=== PATIENT | female | born 1955 | race Caucasian/White ===

== ENCOUNTER 2020-08-28 16:29 | Emergency (ER) | payer MEDICARE, BC ==
--- NOTE | 2020-08-28 17:01 | XRAY Report ---
PROCEDURE: Wrist 3 View LT INDICATIONS: injury TECHNIQUE: 3 views of the wrist were acquired. COMPARISON: None FINDINGS: Bones: No fractures or dislocations. No suspicious bony lesions. Soft tissues: No suspicious soft tissue calcifications. IMPRESSION: No fracture. No acute osseous lesion. If there are persistent symptoms or continued clinical concern for pathology, then repeat plain film radiographs (7-10 days) or advanced imaging (CT, MR, bone scan) should be considered for further evaluation. Reviewed by: Lucina Hope MD, PhD on 08/28/2020 4:59 PM PDT Approved by: Lucina Hope MD, PhD on 08/28/2020 4:59 PM PDT Station ID: [id number]
--- NOTE | 2020-08-28 18:03 | ED Physician Documentation ---
PD HPI UPPER EXT INJURY - Stated complaint Stated Complaint: GLF/LT ARM PX - Chief complaint Chief Complaint: Trauma Ext - History obtained from History obtained from: Patient - History of Present Illness Location: Left, Wrist Type of injury: Fall. No: Laceration Timing - onset: Today Timing - details: Abrupt onset, Still present Improved by: Rest Worsened by: Moving Associated symptoms: Swelling. 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 - Present Medications Home Medications: Ambulatory Orders Medication Instructions Recorded Confirmed No Known Home Medications 08/28/20 08/28/20 - Allergies Allergies/Adverse Reactions: Allergies Allergy/AdvReac Type Severity Reaction Status Date / Time amoxicillin Allergy Rash Verified 08/28/20 16:41 nickel Allergy Rash Verified 08/28/20 16:42 - Social History Does the pt smoke?: No Smoking Status: Never smoker Does the pt drink ETOH?: Yes ETOH Use: Wine, Beer Does the pt have substance abuse?: Yes Substance Use and Type: CBD oil / Products - Immunizations Immunizations are current?: Yes PD ED PE NORMAL - Vitals Vital signs reviewed: Yes - General General: Alert and oriented X 3, Well developed/nourished - Derm Derm: Normal color, Warm and dry - Extremities Extremities: Other (left wrist with tenderness dorsally with swelling. Not tender at snuffbox. Normal sensation infingers. ) - Neuro Neuro: Alert and oriented X 3, No motor deficit, No sensory deficit Results - Vitals Vitals: Vital Signs - 24 hr 08/28/20 08/28/20 16:43 18:17 Temperature 36.7 C 36.0 C L Heart Rate 57 L 53 L Respiratory 16 16 Rate Blood Pressure 136/78 H 131/75 H O2 Saturation 99 100 Oxygen O2 Source Room air - Rads (name of study) left wrist Radiology: Prelim report reviewed PD MEDICAL DECISION MAKING - ED course Complexity details: reviewed results, considered differential, d/w patient Departure - Departure Disposition: 01 Home, Self Care Clinical Impression: Accidental fall Qualifiers: Encounter type: initial encounter Qualified Code(s): W19.XXXA - Unspecified fall, initial encounter Left wrist sprain Qualifiers: Encounter type: initial encounter Qualified Code(s): S63.502A - Unspecified sprain of left wrist, initial encounter Condition: Stable Record reviewed to determine appropriate education?: Yes Instructions: ED Sprain Wrist Comments: Your x-ray does not show any fractures. Presume injury of the ligaments and muscles (sprain). This can feel still take several days for the swelling to go down in a week or so force the pain to improve a lot. It may be 2 or 3 weeks for full complete healing. Use the wrist brace fairly regularly for the first several days to week and then as needed. You can remove it for showering and such. To begin with you may feel better with it during rest and sleep but it is not necessary to keep it on all the time. Have it on when up and around and using the wrist. Use some anti-inflammatory such as ibuprofen 2 or 3 times a day for the next several days to week. Add Tylenol if needed for pain. Follow-up with your primary care if not well improved over the next week and fully improved over 2 to 3 weeks. Discharge Date/Time: 08/28/20 18:22
[2020-08-28] MEDS: IBUPROFEN 600 MG TABLET PO STA (18:13)
[2020-08-28 18:19] VITALS: BP 131/75
== END 2020-08-28 18:22 | disposition home or self-care (01) ==
LOC: ED 16:29
DX: S63.502A Unspecified sprain of left wrist, initial encounter (principal); W19.XXXA Unspecified fall, initial encounter; Y93.H2 Activity, gardening and landscaping; Y92.007 Garden or yard of unspecified non-institutional (private) residence as the place of occurrence of the external cause
CPT/HCPCS: 99283

== ENCOUNTER 2023-01-14 08:00 | Outpatient (CLI) | payer MEDICARE, BC | END 2023-01-14 08:01 | disposition home or self-care (01) | LOC: LAB.S 08:00 | PROVIDERS: ATTEND Nurse Practitioner | DX: R55 Syncope and collapse (principal) | CPT/HCPCS: 82962 ==

== ENCOUNTER 2023-01-14 08:42 | Outpatient (CLI) | payer MEDICARE, BC | END 2023-01-14 08:43 | disposition critical access hospital (66) | LOC: EMS 08:42 | DX: R55 Syncope and collapse (principal); S01.81XA Laceration without foreign body of other part of head, initial encounter; W18.39XA Other fall on same level, initial encounter; Y92.000 Kitchen of unspecified non-institutional (private) residence as the place of occurrence of the external cause; R09.89 Other specified symptoms and signs involving the circulatory and respiratory systems | CPT/HCPCS: A0425; A0429 ==

== ENCOUNTER 2023-01-14 09:17 | Emergency (ER) | payer MEDICARE, BC ==
[2023-01-14 09:55] LABS: BASOPHILS % (AUTO) 0.4 %; EOSINOPHILS % (AUTO) 0.1 %; HGB - HEMOGLOBIN 12.8 g/dL (12.0-16.0); LYMPHOCYTES # (AUTO) 0.4 10^3/uL (1.5-3.5); MEAN CORPUSCULAR HEMOGLOBIN 31.4 pg (27.0-31.0); MEAN CORPUSCULAR HGB CONC 32.8 g/dL (32.0-36.0); MEAN CORPUSCULAR VOLUME 95.8 fL (81.0-99.0); MEAN PLATELET VOLUME 9.1 fL (7.9-10.8); MONOCYTES # (AUTO) 0.6 10^3/uL (0.0-1.0); MONOCYTES % (AUTO) 6.9 %; NEUTROPHILS % (AUTO) 87.5 %; PLT - PLATELET COUNT 229 10^3/uL (130-450); RED BLOOD COUNT 4.07 10^6/uL (4.20-5.40)
[2023-01-14 10:11] LABS: ALBUMIN 4.2 g/dL (3.2-5.5); ALBUMIN/GLOBULIN RATIO 1.6 (1.0-2.2); BILIRUBIN,TOTAL 0.7 mg/dL (0.2-1.0); CALCIUM 9.1 mg/dL (8.5-10.3); CREATININE 0.9 mg/dL (0.6-1.3); POTASSIUM 4.6 mmol/L (3.5-4.5); TOTAL PROTEIN 6.8 g/dL (6.4-8.9)
[2023-01-14 10:17] LABS: TROPONIN I HIGH SENSITIVITY 2.4 ng/L (2.3-14.8)
--- NOTE | 2023-01-14 10:23 | ED Physician Documentation ---
PD HPI SYNCOPE - Stated complaint Stated Complaint: SYNCOPAL EPISODE - Chief complaint Chief Complaint: Neuro - History obtained from History obtained from: Patient, EMS (they found her BP to be low iniitally, improved with some fluids enroute.) - History of Present Illness Witnessed: Witnessed Timing - onset: How many hours ago (1-2) Duration: Seconds Preceding symptoms: Nausea / vomiting, Light headed, Generalized weakness. No: Headache, Chest pain, Abdominal pain Similar symptoms before: Has not had sx before Recently seen: Clinic (seen in afternoon with routine visit and had COVID and FLu vaccines. [place] abruptly bad during night.) Review of Systems Constitutional: reports: Fever (overnight), Chills, Myalgias Nose: denies: Rhinorrhea / runny nose, Congestion Throat: denies: Sore throat Cardiac: denies: Chest pain / pressure, Palpitations, Pedal edema, Calf pain Respiratory: denies: Cough GI: reports: Nausea. denies: Abdominal Pain, Diarrhea Skin: reports: Rash (longer duration of rough, sometimes scaly rounded rash right inguinal, improves with triamcinonlone but not resolves, then back worse agin.) Neurologic: reports: Generalized weakness, Syncope, Head injury. 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 - Present Medications Home Medications: Ambulatory Orders Medication Instructions Recorded Confirmed Clotrimazole/Betamethasone Crm 1 applic TOP BID #45 gm 01/14/23 [Lotrisone Cream] - Allergies Allergies/Adverse Reactions: Allergies Allergy/AdvReac Type Severity Reaction Status Date / Time amoxicillin Allergy Rash Verified 08/28/20 16:41 nickel Allergy Rash Verified 08/28/20 16:42 - Social History Does the pt smoke?: No Smoking Status: Never smoker Does the pt drink ETOH?: Yes Does the pt have substance abuse?: No - Immunizations Immunizations are current?: Yes PD ED PE NORMAL - Vitals Vital signs reviewed: Yes - General General: Alert and oriented X 3, No acute distress, Well developed/nourished - HEENT HEENT: PERRL, EOMI, Other (occipiput with horizontal laceration 7 cm down to fatty tissue. No FB and only minimal bleeding. ) - Neck Neck: Supple, no meningeal sign, No bony TTP, No adenopathy - Cardiac Cardiac: RRR, No murmur - Respiratory Respiratory: Clear bilaterally - Abdomen Abdomen: Soft, Non tender - Derm Derm: Normal color, Warm and dry, Other (rounded patch of rash right lower abd/inguinal area, with scaly type edge and rough center. ) Results - Vitals Vitals: Vital Signs - 24 hr 01/14/23 01/14/23 01/14/23 09:30 11:02 13:28 Temperature 36.1 C L 36.7 C Heart Rate 68 75 67 Respiratory 14 17 18 Rate Blood Pressure 102/55 L 107/62 109/66 O2 Saturation 100 97 96 Oxygen O2 Source Room air - EKG (time done) 10:37 EKG releavant findings:: EKG personally interpreted by author of this note. Relevant findings are: Rate: Rate (enter#) (63) Rhythm: NSR [place]: Normal Intervals: Normal MD QRS: Normal Ischemia: Normal ST segments. No: ST elevation c/w ischemia, ST depression - Labs Labs: Laboratory Tests 01/14/23 01/14/23 09:50 09:50 WBC 8.0 RBC 4.07 L Hgb 12.8 Hct 39.0 MCV 95.8 MCH 31.4 H MCHC 32.8 RDW 12.0 Plt Count 229 MPV 9.1 Neut # (Auto) 7.0 H Lymph # (Auto) 0.4 L [place] # (Auto) 0.6 Eos # (Auto) 0.0 Baso # (Auto) 0.0 Absolute Nucleated RBC 0.00 Nucleated RBC % 0.0 Sodium 137 Potassium 4.6 H Chloride 104 Carbon Dioxide 26 Anion Gap 7.0 BUN 15 Creatinine 0.9 Estimated GFR (MDRD) 62 L Glucose 115 H Calcium 9.1 Total Bilirubin 0.7 AST 18 ALT 11 Alkaline Phosphatase 50 Troponin I High Sens 2.4 Total Protein 6.8 Albumin 4.2 Globulin 2.6 Albumin/Globulin Ratio 1.6 Lipase 25 - Rads (name of study) head CT Relevant Findings:: Prelim report reviewed (no ICH nor acute findings. ), EMP independent interpretation of test Procedures - Laceration (location) occipital scalp Length in cm: 7 Wound type: Linear, Into subcut fat, Clean Neurovascular status: Sensory intact Anesthesia: Lidocaine 1% with epi Wound preparation: Irrigated copiously NS, Wound explored, To the base Deep layer closure: Vicryl, size #-0 - enter number (5), # sutures - enter number (7) Skin layer closure: Catrachita, Interrupted, Other (17 catrachita) PD Medical Decision Making - ED course Complexity details: reviewed results, re-evaluated patient (she is alert and oriented, no distress. vitals are good. ), considered differential (felt chills, fevers, weak last night abruptly after vaccines in office earlier in afternoon, with COVID and influenza vaccines. Got up this morning and felt lightheaded, weak and fell, striking head on furniture with lac. Awoke minute or so. has THACKER. ), d/w patient ED course: she had felt well until several hours after getting vaccines in office, then with good immune response of fever/chills, nausea, weakness, adn then with postural syncope this morning, striking head with laceration. Awoke soon after. Cannot tell with that, if concussive sympotms separate from syncope. Has good impact on head, with headache, and lac. Shared decision for CT head and she would not be excludable based on age for NEXUS nor [place] head rules. CT is okay. She is feeling okay here with good vitals. She does have a skin rash on right abd for awhile. It appears tinea to me, and can use antifungal/steroid. Had been improved but not resolved with just steroid cream from PCP. Departure - Departure Disposition: 01 Home, Self Care Clinical Impression: Episode of syncope, Transient hypotension, Scalp laceration, Vaccine reaction, Tinea corporis Condition: Stable Record reviewed to determine appropriate education?: Yes Instructions: ED Laceration All, ED Syncope Vasovagal Prescriptions: Clotrimazole/Betamethasone Crm [Lotrisone Cream] 1 applic TOP BID #45 gm Comments: Your EKG, blood count and basic chemistry blood tests are normal. Your blood pressure was initially a bit low but seem to improve with fluids. Your heart rate and rhythm are good. It does sound likely that you had a drop in blood pressure as a response to the vaccines from yesterday. No other obvious abnormality at this point. We did do a CT of your head and there is no signs of bleeding fractures or acute problems there. Regarding your scalp laceration, it is okay to wash and shower. It is okay to wash and shower. Clean off the wound twice a day with soap and water, or peroxide and water. Apply some antibiotic ointment to it to keep it moist. Also to watch for signs of infection such as purulence, redness or increasing pain. Return to your primary care or the ER at the specified time for suture removal. Staple removal in 8 to 10 days. It is okay if it is a little bit longer as well. Tylenol or ibuprofen as needed for pains. Stay well-hydrated. You likely will have some level of lightheadedness, some headache and perhaps slightly off balance for a day or 2 from hitting your head well. Recheck if persisting longer than that. Later entry, which I had talked with pt/ about is antifungal cream for abd rash, that I think is tinea. Sent Rx Lotrisone to [facility]. Forms: PCP List Discharge Date/Time: 01/14/23 13:28
[2023-01-14] MEDS ORDERED: KETOROLAC 15 MG/ML VIAL IVP STA (11:44)
[2023-01-14] MEDS ORDERED: SODIUM CHLORIDE 0.9% 1,000 ML IV STA (11:44)
[2023-01-14] MEDS ORDERED: ACETAMINOPHEN 325 MG TABLET PO STA (11:44)
[2023-01-14] MEDS ORDERED: ONDANSETRON 4 MG/2 ML VIAL IVP STA (11:44)
--- NOTE | 2023-01-14 13:31 | CT Report ---
PROCEDURE: HEAD WO INDICATIONS: fall/syncope, struck head TECHNIQUE: Noncontrast 4.5 mm thick angled axial sections acquired from the foramen magnum to the vertex. For r adiation dose reduction, the following was used: automated exposure control, adjustment of mA and/or kV according to patient size. COMPARISON: None. FINDINGS: Image quality: Excellent. CSF spaces: Basal cisterns are patent. No extra-axial fluid collections. Ventricles are normal in size and shape. Brain: No midline shift. No intracranial masses or hemorrhage. Bianchi-white matter interface is norm al. Skull and face: High parietal skin catrachita. Calvarium and visualized facial bones are intact, withou t suspicious lesions. Sinuses: Visualized sinuses and mastoids are clear. IMPRESSION: No acute intracranial pathology. Reviewed by: Nikhil Turner MD on 01/14/2023 1:29 PM PST Approved by: Nikhil Turner MD on 01/14/2023 1:29 PM PST Station ID: [id number]
[2023-01-14 13:32] VITALS: BP 109/66; O2SAT 96
== END 2023-01-14 13:28 | disposition home or self-care (01) ==
LOC: EDUNIT# → ED 09:17
DX: S01.01XA Laceration without foreign body of scalp, initial encounter (principal); W19.XXXA Unspecified fall, initial encounter; I95.9 Hypotension, unspecified; T88.1XXA Other complications following immunization, not elsewhere classified, initial encounter; B35.4 Tinea corporis
CPT/HCPCS: 12032; 36415; 70450; 80053; 83690; 84484; 85025; 93005; 96374; 96375; 99284; A9270